=== PATIENT | male | born 1950 | race Caucasian/White ===

== ENCOUNTER 2018-10-06 11:20 | Emergency (ER) | payer MEDICARE ==
[2018-10-06] MEDS ORDERED: HYDROmorphone 2 MG/ML Syringe IVPUSH ONE (11:27)
--- NOTE | 2018-10-06 11:30 | EDM.PDOC ---
ED HPI GENERAL MEDICAL PROBLEM - General Chief Complaint: Upper Extremity Injury/Pain Stated Complaint: PAIN IN SHOULDER Time Seen by Provider: 10/06/18 11:22 Source of Information: Reports: Patient, RN History Limitations: Reports: No Limitations - History of Present Illness INITIAL COMMENTS - FREE TEXT/NARRATIVE: 68 yr male presents to ER by ambulance. States he was working with the ice auger and it jerked the shoulder dislocated. States extreme pain to shoulder. States he needs an increase amount of pain medicine, states he is a large man and man from the 70's and it takes alot to relieve pain for him. EMS is here and assisting with positioning to assist with relief of pain. Review of Systems - Review of Systems Review Of Systems: See Below Constitutional: Reports: No Symptoms Musculoskeletal: Reports: Shoulder Pain (left shoulder pain, possible dislocation from accident with auger) Skin: Reports: Other (diaphoretic with pain.) ED EXAM, GENERAL - Physical Exam Exam: See Below Exam Limited By: No Limitations General Appearance: Alert, No Apparent Distress Nose: Normal Inspection Throat/Mouth: Normal Inspection, Normal Lips, Normal Voice, No Airway Compromise Head: Atraumatic, Normocephalic Respiratory/Chest: No Respiratory Distress, Lungs Clear, Normal Breath Sounds Cardiovascular: Normal Peripheral Pulses, Regular Rate, Rhythm GI/Abdominal: Soft, Non-Tender Extremities: Other (moving fingers freely. Increase in pain and limited mobility or left shoulder with displaced posterior. X-ray completed.) Neurological: Alert, Oriented Psychiatric: Normal Affect, Normal Mood Skin Exam: Warm, Dry, Other (laceration to right hand between thumb and pointer finger in crease of hand, bandaid in place on admit to ER. Small superficial laceration to forearm noted.) Course - Orders/Labs/Meds Meds: Medications Discontinued Medications Generic Name Dose Route Start Last Admin Trade Name Freq PRN Reason Stop Dose Admin Hydromorphone HCl 0.5 mg 10/06/18 11:27 Dilaudid IVPUSH 10/06/18 11:28 ONETIME ONE Hydromorphone HCl Confirm 10/06/18 11:51 Dilaudid Administered 10/06/18 11:52 Dose 2 mg .ROUTE .STK-MED ONE - Re-Assessments/Exams Free Text/Narrative Re-Assessment/Exam: 10/06/18 11:54 Valium 5 mg IV given, pt relaxed, still having increase in pain Dilaudid [address] Golden here to consult and Shoulder dislocation corrected. Laceration to right hand from the auger. Pt moving fingers freely. Touches thumb to each finger and wiggles fingers without problems. No tendon involvement noted and no debris in wound, after cleansing wound. States tetanus in last 1-2 years. Had a pacemaker replaced. 10/06/18 LE 13:37 Dr Golden cleansed wound to right hand, 7 sutures 3-0 applied. Pt tolerated well. Lidocaine 1% used for anesthetic. Area cleansed and dressing applied. Suture removal 10-14 days. Pt ate sandwich and taking fluids well. is here and talking with pt. Discharged to family care. Pt states shoulder is improved and pain is relieved. Will discharge with Rx for Hydrocodone/APAP. [place] Prescription Drug report ran for pt and included with record. Shoulder immobilizer is on. Pt taken by wheelchair to car, tolerated well. RTC or PCP in 10-14 days for follow-up of shoulder and suture removal. Return to ER if increase in shoulder pain or concerns of dislocation. Departure - Departure Time of Disposition: 13:41 Disposition: Home, Self-Care 01 Condition: Good Clinical Impression: Dislocation of shoulder, Laceration of hand - Discharge Information *PRESCRIPTION DRUG MONITORING PROGRAM REVIEWED*: Yes *COPY OF PRESCRIPTION DRUG MONITORING REPORT IN PATIENT PREETI: Yes Instructions: Shoulder Dislocation Referrals: PCP,None [Primary Care Provider] - Forms: ED Department Discharge - Assessment/Plan Plan: Discharged to family care. Suture removal in 10-14 days. Sling/immobilizer to left upper extremity. Rx of Hydrocodone/APAP 5-325mg 1 tablet every 6 hour prn and 10 tablets disp. Return to PCP in 1-2 week for follow-up.
[2018-10-06] MEDS ORDERED: HYDROmorphone 2 MG/ML Syringe ONE ×2 (11:40→11:51)
[2018-10-06] MEDS ORDERED: diazePAM 5 MG/ML MDV ONE ×2 (11:40)
[2018-10-06] MEDS ORDERED: HYDROmorphone 2 MG/ML SDV ONE (11:40)
[2018-10-06] MEDS ORDERED: HYDROmorphone 2 MG/ML SDV IVPUSH ONE (11:45)
--- NOTE | 2018-10-06 12:02 | CR ---
DATE OF SERVICE: 10/06/18 CLINICAL DATA: shoulder pain LEFT SHOULDER: A single AP view was performed. The gap between the head of the humerus and glenoid appears to be wide suggesting a posterior dislocation. Additional views are necessary to confirm this. 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 No fractures. [id number] [facility]
--- NOTE | 2018-10-06 12:26 | CR ---
LEFT SHOULDER, 10/06/18 Single AP view was performed. Comparison is made to a prior exam from earlier in the day. The suspected posterior dislocation on the prior exam appears to be reduced on this followup study, however a single view is not adequate. There is a corticated osseous density along the posterior margin of the glenoid consistent with an old bony avulsion or loose body. There is deformity of the left medial clavicle consistent with a prior fracture. [id number] [facility]
--- NOTE | 2018-10-19 10:21 | PCM.PRNOTE ---
- Free Text/Narrative Note: Patient counseled on procedure and laceration management. Patient consented to treatment. Right hand prepped sterilely and wound cleansed and explored to base of the right thumb and index finger web. Laceration 3.5cm in length. 3-0 sutures used 7 total. Simple interrupted sutures placed with no complications. Counseled on wound care and management and follow up suture removal and care.
== END 2018-10-06 13:20 | disposition home or self-care (01) ==
LOC: LB.ED 11:20
DX: S43.025A Posterior dislocation of left humerus, initial encounter (principal); S61.411A Laceration without foreign body of right hand, initial encounter; S51.819A Laceration without foreign body of unspecified forearm, initial encounter; W22.8XXA Striking against or struck by other objects, initial encounter
CPT/HCPCS: 12001; 12002; 23650; 73020-LT; 96374; 96375; 99283; 99283-25; A0425; A0429; A9270-GY; J1170; J2001